=== PATIENT | female | born 1935 | race Caucasian/White ===

== ENCOUNTER 2016-08-15 12:16 | Inpatient (IN) | payer OTHER ==
[~2016-08-15] VITALS: Ht 142.2 cm; Wt 62.9 kg
--- NOTE | ~2016-08-15 | H ---
[facility] [place] [address] HISTORY AND PHYSICAL Name: MARYCRUZ PITTS Room #: 459-P ADM IN M.R.#: [id number] Admission: 08/15/16 Attend Phys: Burton Sanford MD Discharge: Date of : 33 Report #: [id number] THIS REPORT FOR: //name// CC: Burton Mancia Lama DATE OF SERVICE: 08/15/2016 TYPE OF DICTATION: Admission H and P after [id number] encounter. CHIEF COMPLAINT: Falls and weakness. HISTORY OF PRESENT ILLNESS: An 80-year-old female presented to the ER with a fall secondary to weakness. The patient now complains of back pain secondary to having bruises on her back and her left lower extremity. The patient also has a low blood pressure this morning. The patient's family reported a fall a week ago and she has a laceration on her right arm secondary to that. The patient recently started to take Zyprexa, and after that, she was complaining of weakness and repeated falls. The patient currently denies any fever, chills, nausea, vomiting, diarrhea, abdominal pain, short of breath, chest pain, headaches or any other associated symptoms. REVIEW OF SYSTEMS: Except that mentioned in the HPI, all other systems are negative. PAST MEDICAL HISTORY: Includes congestive heart failure and coronary artery disease status post peripheral vascular disease, status post stents. PAST SURGICAL HISTORY: Hysterectomy, gallbladder removal and pelvis fracture. MEDICATIONS: See admission reconciliation sheet. ALLERGIES: She is allergic to CODEINE, DIAZEPAM, FLUOXETINE, PENICILLIN, PENTAZOCINE, TRAMADOL and AMITRIPTYLINE. SOCIAL HISTORY: She is living with her . Does not smoke, drink or have any illicit drugs. PHYSICAL EXAMINATION: GENERAL: The patient is sleepy and lethargic, in no acute distress. VITAL SIGNS: Blood pressure 86/54, temperature 36.8, pulse 64, respirations 18 and O2 saturation 94% on 2 liters. HEENT: Eyes, intact extraocular muscles. No jaundice. Atraumatic and normocephalic. Moist mucous membranes. NECK: Supple. No lymph nodes, no JVD, no bruit. LUNGS: Good air entry both sides. Normal respiratory effort. No wheezes or [facility] [address] [place] [address] HISTORY AND PHYSICAL Name: MARYCRUZ PITTS Room #: 459[facility] .R.#: [id number] Admission: 08/15/16 Attend Phys: Burton Sanford MD Discharge: Date of : 33 Report #: [id number]. CARDIOVASCULAR: Regular rate and rhythm. No murmur, rub or gallop. Normal S1 and S2. ABDOMEN: Soft and nontender, positive bowel sounds. No organomegaly appreciated. EXTREMITIES: Moves all, but there are some bruises on the left lower extremity and right lower extremity. NEUROLOGIC: Cranial nerves 2-12 are intact. No focal neurological signs. SKIN: Faint ecchymosis near left scapula. Skin tear on the right forearm. Bruising bilateral lower extremities. LABORATORY DATA: EKG did show sinus rhythm. Sodium 128, potassium 5.8, creatinine 2.3, glucose 154 and calcium 9.2. White count 12.6, hemoglobin 10.4 and hematocrit 30.7. X-ray of the chest does show possible fracture of the anterior left 9th rib. ASSESSMENT AND PLAN: 1. Hypotension. The patient does not have any signs of infection for now, so we are going to give her IV fluids and follow her blood pressure. Actually, her blood pressure started to get better in the ER after a bolus of normal saline. 2. Fall. ____ We are going to consult PT, OT and put the patient on fall precautions. 3. Hyponatremia. We are going to replace that by normal saline. 4. Acute renal failure in the form of acute tubular necrosis. Her creatinine jumped up from 1.2 to 2.3, so the patient is going to be seen by nephrology for that. 5. Hyperkalemia 5.9. We are going to monitor her potassium level and give her some Kayexalate to overcome that. 6. Dementia. Has no behavior problem, and we are going to hold on the Zyprexa. 7. The patient is full code. 8. Gastrointestinal and deep vein thrombosis prophylaxis. <ELECTRONICALLY SIGNED> By: Burton Sanford MD 08/16/16 0929 1628 1807 Burton Sanford MD /nt
--- NOTE | ~2016-08-15 | EKG ---
[address] [place] [address] ELECTROCARDIOGRAM REPORT Name: MARYCRUZ PITTS Room #: 459-P ADM IN M.R.#: [id number] Admission: 08/15/16 Attend Phys: Burton Sanford MD Discharge: Date of : 33 Report #: [id number] THIS REPORT FOR: //name// [facility] ED Test Date: 2016-08-15 Test Time: 14:51:52 Pat Name: MARYCRUZ PITTS Department: Room: [facility] Gender: F Tool Liaison: Winsome MULLER : 1935 Requested By: Katalina Newberry Order Number: [id number] MD: Erik Rodriguez Measurements Intervals [place] Rate: 94 P: 0 CA: 151 QRS: 33 QRSD: 77 T: 35 QT: 391 QTc: 490 Interpretive Statements Sinus rhythm Multiple ventricular premature complexes Low voltage, extremity leads Nonspecific ST segment abnormalities Compared to ECG 07/22/2016 03:49:54 No significant change Electronically Signed On 08-15-2016 17:04:52 TEACHER OF THE SIGHT IMPAIRED by Erik Rodriguez [email or web address] <ELECTRONICALLY SIGNED> By: Erik Rodriguez MD 08/15/16 1704 145 50 Erik Rodriguez MD /GISELLE
--- NOTE | ~2016-08-15 | HC ---
[facility] [address] [address] CONSULTATION Name: MARYCRUZ PITTS Room #: 459-P [facility] IN M.R.#: [id number] Admission: 08/15/16 Attend Phys: uBrton Sanford MD Discharge: 08/22/16 Date of : 33 Report #: [id number] THIS REPORT FOR: //name// CC: Burton Lama NEPHROLOGY CONSULTATION ATTENDING PHYSICIAN: Burton Sanford MD REASON FOR CONSULTATION: Acute kidney injury. HISTORY OF PRESENT ILLNESS: This 80-year-old patient has recently had several hospitalizations for back pain and L4-5 compression fracture, kyphoplasty, and now presents with weakness, hypotension and creatinine that has been elevating from 0.6 in June of last year to 1.6 couple week ago, and now 2.3. Past. She has apparently not had nausea or vomiting, but she has been on her usual home medications, no diarrhea either. PAST MEDICAL HISTORY: She has coronary artery disease. She has had previous coronary stenting. History of hypertension. She had the collapsed disk with kyphoplasty, previous pelvic fracture, previous subdural hematoma, and peripheral vascular disease. She also has hysterectomy and cholecystectomy. HOME MEDICATIONS: As report from the hospital records included MiraLax as needed, folic acid 1 mg daily, potassium chloride 20 mEq daily, [place] p.r.n., B12, Zofran, furosemide 20 mg daily, D3 5,000 units daily, Pyridium, lorazepam 0.5 mg daily, Monopril 40 mg daily, Brilinta 90 mg b.i.d., Protonix 40 mg daily, iron melatonin, prednisone 20 mg daily. Neurontin 300 mg at bedtime, 100 mg midday. Bentyl 10 mg b.i.d., and Senokot at bedtime. FAMILY HISTORY: Noncontributory. SOCIAL HISTORY: Lives with her . No substantial cigarettes or alcohol. REVIEW OF SYSTEMS: GENERAL: She has been feeling progressively weak. EYES: She says her vision is okay. ENT: Hearing is okay. No problems with swallowing. ENDOCRINE: No diabetes or thyroid disease. RESPIRATORY: She denies shortness of breath, pleuritic pain or cough. CARDIAC: She has the cardiac history, but no recent chest pain, denies palpitations. GASTROINTESTINAL: Denies nausea, vomiting, diarrhea or bloody stools. GENITOURINARY: Denies dysuria, hematuria or stone disease. NEUROLOGIC: Generalized weakness, apparently she has dementia. [facility] [address] [place] [address] CONSULTATION Name: MARYCRUZ PITTS Room #: 459-P [facility] IN [facility].#: [id number] Admission: 08/15/16 Attend Phys: Burton Sanford MD Discharge: 08/22/16 Date of : 33 Report #: [id number] PHYSICAL EXAMINATION: GENERAL: This is a chronically ill-appearing, elderly lady, in no acute distress. SKIN: Multiple ecchymoses throughout, somewhat of cushingoid appearance. SKELETAL: As above. HEENT: Extraocular movements are full. Vision is intact. Hearing is intact. Mucous membranes are moist. Tongue and buccal mucosa are benign. NECK: Supple. CHEST: Clear to auscultation. HEART: Irregular. ABDOMEN: Soft. EXTREMITIES: Show no edema. NEUROLOGIC: Generalized weakness. LABORATORY DATA: Sodium 129, potassium 5.9, chloride 95, bicarbonate 21, creatinine 2.3, BUN 62. ASSESSMENT AND PLAN: 1. Acute kidney injury. Creatinine is up. She remained on the WESLEY inhibitor, the diuretics, the potassium, likely got somewhat volume depleted and she has been hypotensive, I will stop all those. She has been on prednisone, I wonder if she missed some doses, she has been on the 20 mg dose for a long-time, certainly is a somewhat dependent on that, that may also be contributing to her hypotension. I she will get better rather readily. At this point, I will not order a sonogram, but if she does get better very easily, then I will have to go ahead and order sonogram for completeness. 2. Coronary artery disease, status post stents. 3. Dementia. 4. Recent kyphoplasty with L4 compression fracture. <ELECTRONICALLY SIGNED> By: Rubens Almonte MD 08/28/16 1126 1837 0823 Rubens Almonte MD /nt
--- NOTE | ~2016-08-15 | EKG ---
[address] [address] ELECTROCARDIOGRAM REPORT Name: MARYCRUZ PITTS Room #: 459- ADM IN M.R.#: [id number] Admission: 08/15/16 Attend Phys: Burton Sanford MD Discharge: Date of : 33 Report #: [id number] THIS REPORT FOR: //name// [facility] Test Date: 2016-08-19 Test Time: 15:56:36 Pat Name: MARYCRUZ PITTS Department: Room: 459 Gender: F Garnett Machine Operator Helper: Angely DILL : 1935 Requested By: Charles Witt Order Number: [id number] MD: Phil Holman Measurements Intervals [place] Rate: 80 P: 39 [place]: 228 QRS: 2 QRSD: 70 T: 61 QT: 319 QTc: 368 Interpretive Statements Sinus tachycardia Ventricular trigeminy Prolonged [place] interval Low voltage, extremity and precordial leads Compared to ECG 08/15/2016 14:51:52 premature ventricular complexes are now present Electronically Signed On 08-20-2016 7:32:53 PRECISION DEVICES INSPECTOR/TESTER by Phil Holman [email or web address] <ELECTRONICALLY SIGNED> By: Phil Holman MD, FACC 08/20/16 0732 1556 1556 Phil Holman MD, [facility] /EPI
[2016-08-15 12:24] VITALS: BP 86/44
[2016-08-15 14:08] LABS: HEMATOCRIT 30.7 % (37.0-47.0); HEMOGLOBIN 10.4 gm/dL (12.0-15.0); MCH 33.5 pg (26.0-34.0); MCHC 33.8 % (28.0-37.0); MCV 99.1 fL (80.0-100.0); PLATELET COUNT 285 thou/uL (150-400); RDW 14.9 % (10.5-14.5); WBC 12.6 thou/uL (4.0-11.0)
[2016-08-15 14:14] LABS: MANUAL DIFF YES
[2016-08-15 14:15] LABS: CALCIUM 9.2 mg/dL (8.5-10.1); CREATININE 2.3 mg/dL (0.6-1.3); POTASSIUM 5.9 mmol/L (3.5-5.1)
[2016-08-15 14:47] LABS: ANISOCYTOSIS 1+; TOTAL CELL COUNT 100
[2016-08-15 16:15] LABS: URINE BILIRUBIN NEGATIVE (Negative); URINE BLOOD NEGATIVE (Negative); URINE COLOR YELLOW; URINE GLUCOSE-RANDOM* NEGATIVE (Negative); URINE KETONES NEGATIVE (Negative); URINE NITRITE NEGATIVE (Negative); URINE PROTEIN (DIPSTICK) NEGATIVE (Negative); URINE SPECIFIC GRAVITY <= 1.005 (1.003-1.035); URINE UROBILINOGEN 0.2 E.U./dl (0.2-1.0)
[2016-08-15 16:25] VITALS: BP 92/50
[2016-08-15 16:50] VITALS: BP 94/58
[2016-08-15 21:02] VITALS: BP 94/46
[2016-08-16 00:08] VITALS: BP 104/38
[2016-08-16 04:21] VITALS: BP 96/46
[2016-08-16 05:55] LABS: HEMATOCRIT 25.7 % (37.0-47.0); HEMOGLOBIN 8.6 gm/dL (12.0-15.0); MCH 34.1 pg (26.0-34.0); MCHC 33.4 % (28.0-37.0); MCV 101.9 fL (80.0-100.0); RBC 2.53 mil/uL (4.20-5.00); RDW 15.3 % (10.5-14.5); WBC 7.4 thou/uL (4.0-11.0)
[2016-08-16 06:14] LABS: ALBUMIN 2.7 g/dL (3.4-5.0); ALKALINE PHOSPHATASE 67 U/L (46-116); ANION GAP 10 mmol/L (7-16); BUN 53 mg/dL (7-18); CALCIUM 8.2 mg/dL (8.5-10.1); CHLORIDE 103 mmol/L (98-107); CO2 24 mmol/L (21-32); CREATININE 1.6 mg/dL (0.6-1.3); GLUCOSE 123 mg/dL (70-99); SGOT < 5 U/L (15-37); SGPT 23 U/L (30-65); TOTAL BILIRUBIN 0.1 mg/dL (<0.1-1.0); TOTAL PROTEIN 5.3 g/dL (6.4-8.2)
[2016-08-16 06:56] LABS: SODIUM 137 mmol/L (136-145)
[2016-08-16 08:00] VITALS: BP 86/36
[2016-08-16 12:00] VITALS: BP 97/29
[2016-08-16 16:00] VITALS: BP 99/47
[2016-08-16 20:43] VITALS: BP 99/40
[2016-08-17 04:14] VITALS: BP 103/52
[2016-08-17 06:02] LABS: ABSOLUTE NEUTROPHILS 5.3 thou/uL (1.4-8.2); BASOPHILS 0.2 % (0.0-2.0); EOSINOPHILS 0.4 % (0.0-3.0); HEMATOCRIT 22.5 % (37.0-47.0); HEMOGLOBIN 7.6 gm/dL (12.0-15.0); LYMPHOCYTES 16.7 % (24.0-44.0); MCH 33.9 pg (26.0-34.0); MCHC 33.7 % (28.0-37.0); MCV 100.5 fL (80.0-100.0); MONOCYTES 4.4 % (1.0-8.0); PLATELET COUNT 230 thou/uL (150-400); POLYS 78.3 % (36.0-66.0); RBC 2.24 mil/uL (4.20-5.00); RDW 15.2 % (10.5-14.5); WBC 6.8 thou/uL (4.0-11.0)
[2016-08-17 06:23] LABS: MANUAL DIFF NO
[2016-08-17 06:26] LABS: ALBUMIN 2.4 g/dL (3.4-5.0); CALCIUM 7.9 mg/dL (8.5-10.1); CREATININE 1.3 mg/dL (0.6-1.3); PHOSPHORUS 2.4 mg/dL (2.5-4.9); POTASSIUM 4.6 mmol/L (3.5-5.1)
[2016-08-17 08:03] VITALS: BP 81/38
[2016-08-17 11:39] LABS: HEMATOCRIT 25.1 % (37.0-47.0); HEMOGLOBIN 8.6 gm/dL (12.0-15.0)
[2016-08-17 12:27] VITALS: BP 126/45
[2016-08-17 17:20] LABS: HEMOGLOBIN 7.9 gm/dL (12.0-15.0)
[2016-08-17 20:00] VITALS: BP 98/70
[2016-08-17 23:27] LABS: HEMATOCRIT 26.2 % (37.0-47.0); HEMOGLOBIN 9.1 gm/dL (12.0-15.0)
[2016-08-18 04:00] VITALS: BP 119/62
[2016-08-18 06:44] LABS: HEMOGLOBIN 8.1 gm/dL (12.0-15.0); MCH 33.8 pg (26.0-34.0); MCV 99.4 fL (80.0-100.0); PLATELET COUNT 258 thou/uL (150-400); RBC 2.41 mil/uL (4.20-5.00); WBC 8.3 thou/uL (4.0-11.0)
[2016-08-18 06:46] LABS: MANUAL DIFF YES
[2016-08-18 07:11] LABS: ALBUMIN 2.8 g/dL (3.4-5.0); CALCIUM 8.6 mg/dL (8.5-10.1); PHOSPHORUS 2.5 mg/dL (2.5-4.9); POTASSIUM 4.4 mmol/L (3.5-5.1)
[2016-08-18 07:52] VITALS: BP 144/77
[2016-08-18 08:12] LABS: TOTAL CELL COUNT 100
[2016-08-18 08:14] LABS: ABSOLUTE NEUTROPHILS 5.7 thou/uL (1.4-8.2); ANISOCYTOSIS 1+; METAMYELOCYTES 2 %; POLYCHROMASIA OCCASIONAL
[2016-08-18 10:49] LABS: HEMATOCRIT 25.8 % (37.0-47.0); HEMOGLOBIN 8.6 gm/dL (12.0-15.0)
[2016-08-18 11:38] VITALS: BP 99/53
[2016-08-18 15:15] VITALS: BP 133/62
[2016-08-18 17:06] LABS: HEMATOCRIT 23.3 % (37.0-47.0); HEMOGLOBIN 7.9 gm/dL (12.0-15.0)
[2016-08-18 19:58] VITALS: BP 101/46
[2016-08-18 23:44] LABS: HEMATOCRIT 20.2 % (37.0-47.0)
[2016-08-18 23:48] LABS: HEMOGLOBIN 6.9 gm/dL (12.0-15.0)
[2016-08-19 01:42] LABS: ABSOLUTE NEUTROPHILS 6.6 thou/uL (1.4-8.2); BASOPHILS 0.3 % (0.0-2.0); EOSINOPHILS 0.2 % (0.0-3.0); HEMATOCRIT 24.1 % (37.0-47.0); LYMPHOCYTES 14.3 % (24.0-44.0); MCH 33.5 pg (26.0-34.0); MCHC 33.4 % (28.0-37.0); MCV 100.2 fL (80.0-100.0); MONOCYTES 4.1 % (1.0-8.0); PLATELET COUNT 262 thou/uL (150-400); POLYS 81.1 % (36.0-66.0); RDW 15.1 % (10.5-14.5); WBC 8.2 thou/uL (4.0-11.0)
[2016-08-19 01:49] LABS: MANUAL DIFF NO
[2016-08-19 01:56] LABS: ALBUMIN 2.7 g/dL (3.4-5.0); CALCIUM 8.6 mg/dL (8.5-10.1); PHOSPHORUS 2.6 mg/dL (2.5-4.9); POTASSIUM 4.1 mmol/L (3.5-5.1)
[2016-08-19 03:47] VITALS: BP 100/52
[2016-08-19 07:21] LABS: HEMATOCRIT 23.9 % (37.0-47.0); HEMOGLOBIN 8.2 gm/dL (12.0-15.0)
[2016-08-19 08:17] VITALS: BP 116/72
[2016-08-19 11:36] VITALS: BP 110/66
[2016-08-19 13:50] LABS: HEMATOCRIT 24.1 % (37.0-47.0); HEMOGLOBIN 8.4 gm/dL (12.0-15.0)
[2016-08-19 16:40] VITALS: BP 112/55
[2016-08-19 19:09] LABS: HEMOGLOBIN 7.5 gm/dL (12.0-15.0)
[2016-08-19 19:57] VITALS: BP 128/59
[2016-08-20 03:47] LABS: HEMATOCRIT 21.1 % (37.0-47.0); HEMOGLOBIN 7.2 gm/dL (12.0-15.0); MCH 33.9 pg (26.0-34.0); MCHC 34.2 % (28.0-37.0); MCV 99.1 fL (80.0-100.0); PLATELET COUNT 242 thou/uL (150-400); RBC 2.13 mil/uL (4.20-5.00); RDW 14.9 % (10.5-14.5)
[2016-08-20 03:52] LABS: MANUAL DIFF YES
[2016-08-20 04:03] LABS: ALBUMIN 2.6 g/dL (3.4-5.0); CALCIUM 8.8 mg/dL (8.5-10.1); CREATININE 1.1 mg/dL (0.6-1.3); POTASSIUM 4.1 mmol/L (3.5-5.1); TOTAL BILIRUBIN 0.2 mg/dL (<0.1-1.0); TOTAL PROTEIN 5.6 g/dL (6.4-8.2)
[2016-08-20 04:34] VITALS: BP 108/63
[2016-08-20 05:28] LABS: ABSOLUTE NEUTROPHILS 7.1 thou/uL (1.4-8.2); MYELOCYTES 1 %; TOTAL CELL COUNT 100
[2016-08-20 05:29] LABS: ANISOCYTOSIS 1+; POLYCHROMASIA 1+
[2016-08-20 07:45] VITALS: BP 116/61
[2016-08-20 09:08] LABS: HEMATOCRIT 23.4 % (37.0-47.0); HEMOGLOBIN 8.1 gm/dL (12.0-15.0)
[2016-08-20 12:15] VITALS: BP 104/58
[2016-08-20 16:15] VITALS: BP 86/38
[2016-08-20 19:34] VITALS: BP 96/51
[2016-08-21 06:05] VITALS: BP 117/52
[2016-08-21 08:00] VITALS: BP 117/56
[2016-08-21 12:00] VITALS: BP 95/52
[2016-08-21 16:00] VITALS: BP 104/40
[2016-08-21 20:00] VITALS: BP 92/52
[2016-08-22] VITALS: BP 106/52
[2016-08-22 04:00] VITALS: BP 98/47
[2016-08-22 08:00] VITALS: BP 104/51
[2016-08-22 12:00] VITALS: BP 104/55
[2016-08-22 16:00] VITALS: BP 95/59
== END 2016-08-22 18:31 | DRG 682 ==
LOC: ER 12:16 → EROBS 14:44 → 4W 14:44
PROVIDERS: Emergency Medicine; Hospitalist; Internal Medicine Nephrology; Nurse Practitioner Acute Care; Nurse Practitioner Family
DX: N17.0 Acute kidney failure with tubular necrosis (principal); E43 Unspecified severe protein-calorie malnutrition; E87.1 Hypo-osmolality and hyponatremia; E87.5 Hyperkalemia; S80.10XA Contusion of unspecified lower leg, initial encounter; I50.9 Heart failure, unspecified; I25.10 Atherosclerotic heart disease of native coronary artery without angina pectoris; I73.9 Peripheral vascular disease, unspecified; D64.9 Anemia, unspecified; K22.2 Esophageal obstruction; K57.30 Diverticulosis of large intestine without perforation or abscess without bleeding; F03.90 Unspecified dementia, unspecified severity, without behavioral disturbance, psychotic disturbance, mood disturbance, and anxiety; Z90.49 Acquired absence of other specified parts of digestive tract; Z87.81 Personal history of (healed) traumatic fracture; Z79.899 Other long term (current) drug therapy; Z88.8 Allergy status to other drugs, medicaments and biological substances; Z88.6 Allergy status to analgesic agent; I25.2 Old myocardial infarction; Z79.82 Long term (current) use of aspirin; Y93.89 Activity, other specified; Z90.710 Acquired absence of both cervix and uterus; Y92.89 Other specified places as the place of occurrence of the external cause; Y99.8 Other external cause status; Z95.5 Presence of coronary angioplasty implant and graft; W19.XXXA Unspecified fall, initial encounter; Z79.52 Long term (current) use of systemic steroids; Z68.31 Body mass index [BMI] 31.0-31.9, adult
CPT/HCPCS: 10045

== ENCOUNTER → 2016-08-15 | Outpatient (CLI) | payer OTHER ==
[~2016-08-15] MED LIST: ALENDRONATE SOD35 MG PO; ASPIR 8181 MG PO; ASPIRIN EC81 M1 PO; ATIVAN0.5 MG PO; B12INJ IM; BACTRIM DS TAB1 EACH PO; BENTYL 10 MG CA10 M1 PO; BENTYL 20 MG TA20 M1 PO; BENTYL10 MG PO; BISACODYL SUPP10 MG RECTAL; BRILINTA90 MG PO; CALCIUM 600 +1 EAC1 PO; CARAFATE 1 GM TA1 G1 PO; CEFDINIR300 MG PO; CELEXA 10 MG TA10 M1 PO; CELEXA20 MG PO; CIPRO500 MG PO; CIPROFLOXACIN500 M3 PO; COLACE 100 MG100 MG PO; COLACE100 MG PO; COREG3.125 MG PO; DRISDOL50000 UNIT PO; ELMIRON 100 MG100 M1 PO; ERYTHROMYCIN250 MG PO; EX-LAX15 M1 PO; FLAGYL500 MG PO; FLEET ENEMA118 ML RC; FLEXERIL PO; FLOMAX0.4 MG PO; FLUOXETINE HCL20 M1 PO; FOLBIC RF TABL1 EACH PO; FOLIC ACID1 MG PO; FOSINOPRIL SODI40 M1 PO; FOSINOPRIL SODI40 MG; GABAPENTIN 100100 MG PO; HYDROCHLOROTHIA25 M1; HYDROCHLOROTHIA25 M1 PO; HYDROCHLOROTHIA25 M2 PO; HYDROCODONE-AP1 EAC6 PO; HYDROCODONE-APA1 TA1 PO; IMDUR 30 MG TAB30 M1 PO; IRON325 PO; LASIX 20 MG TAB20 MG PO; LASIX 40 MG TAB40 M2 PO; LEVAQUIN 500 M500 M2 PO; LIDODERM 5%1 PATC1 TRANSDERM; LIPITOR 20 MG T20 M1 PO; LIPITOR20 MG PO; LISINOPRIL10 MG PO; LISINOPRIL20 MG PO; LOPRESSOR 50 MG50 M1 PO; LOPRESSOR25 PO; LORAZEPAM 0.50.5 M1 PO; LOVASTAT40 PO; MELATONIN3 MG PO; MILK OF MA2400 MG/10 PO; MIRALAX17 GM PO; MIRALAX255 GM PO; MIRTAZAPINE15 M2 PO; MOBIC15 MG PO; MONOPRIL20 MG PO; NEURONTIN 300300 M1 PO; NORCO 5-325 TA1 EACH PO; NYSTATIN 100,0015 GM TP; OMEPRAZOLE20 M2 PO; ONDANSETRON HCL4 M2 PO; OXYBUTYNIN 5 MG5 M2 PO; OXYCONTIN10 M1 PO; PANTOPRAZOLE SO40 M1 PO; PAXIL10 MG PO; PHENAZOPYRIDIN200 M2 PO; PHENAZOPYRIDINE PO; POTASSIUM20 PO; PRAVACHOL20 MG PO; PREDNISONE 20 M20 M1; PREDNISONE 20 M20 MG PO; PREMARIN0.625 MG PO; PROTONIX40 M1 PO; PROZAC 20 MG20 M1; RESTORIL15 MG PO; SENNA PO; SENNA S TABLET1 EACH PO; TORADOL 10 MG T10 MG PO; TRAMADOL 50 MG50 MG PO; TYLENOL325 MG PO; VITAMIN B-121000 MCG PO; VITAMIN D1000 UNI1 PO; VITAMIN D35000 UNI1 PO; ZOFRAN ODT4 MG DISSOLVE; ZOFRAN4 MG PO; ZYPREXA 2.2.5 MG/1 T PO; [UNRECOGNIZED DRUG - OTHER]; duragesic TD
--- NOTE | ~2016-08-15 | HPC ---
[facility] [address] [address] PAIN MANAGEMENT CONSULTATION Name: MARYCRUZ PITTS Room #: REG ANTONY Colon#: [id number] Admission: 08/15/16 Attend Phys: Arsh Joseph DO Discharge: Date of : 33 Report #: [id number] THIS REPORT FOR: //name// CC: Gavino Joseph DATE OF SERVICE: 08/15/2016 The patient is an 80-year-old female initially seen in consultation 07/14/2016, diagnosed with rectovaginal pain, component of lumbar radiculopathy secondary to spinal stenosis requiring complex medication management. She was initially given a ganlion impar block with about 40% relief. I saw her in followup 07/18/2016, we progressed to caudal epidural injection under fluoroscopy. The patient returns to pain clinic today noting that the rectovaginal pain has essentially gone. She does, however, have increasing pain in the mid back area. Last week, she had fallen over a commode, had pain left back and shoulder. Actually today, she fell again though this was a slow controlled fall to the ground as she had tripped, but had 2 people assisting her. Prior history of L4 vertebroplasty. Today, she is noting significant increasing pain in the mid back area. She is tender over the T3-T4 area, has significant thoracic kyphosis. Rates her pain a "10" on a 0-10 visual analog scale. PHYSICAL EXAMINATION: Otherwise shows 80-year-old female, BMI is approximately 27 kilograms per meter squared. She is hypotensive today, blood pressure 75/62, pulse 60, respirations 14. She states pain is quite problematic. With point tenderness, I am concerned that she may have another vertebral compression fracture. RECOMMENDATIONS: After discussion with the patient and her son and biostatistician, we noted she has been taking hydrocodone 5/325 every 4 hours with dwindling efficacy. She has been on this for many years. She does take gabapentin 100 mg 1 in the morning and 3 at night. We have elected to start the patient on a long acting opiate, Duragesic 12 mcg q. 72 hours and substitute tramadol for breakthrough pain. I have taken the liberty of getting the patient 1 prescription for this medication. I will have her follow up with Dr. Gavino Lama who typically is her managing physician. Given her hypotension and acute axial back pain concern for another vertebral compression fracture, the patient was transferred from our clinic to the ER. <ELECTRONICALLY SIGNED> By: Arsh Joseph DO 08/18/16 0917 1514 1909 Arsh Joseph DO /nt
[2016-08-15 11:37] VITALS: BP 75/62
== END ==
LOC: PAIN 07:06
DX: M54.16 Radiculopathy, lumbar region (principal); M48.06 Spinal stenosis, lumbar region; I10 Essential (primary) hypertension

== ENCOUNTER → 2016-10-30 | Outpatient (CLI) | payer OTHER ==
[~2016-10-30] VITALS: Ht 152.4 cm; Wt 72.6 kg
[~2016-10-30] MED LIST changes: +FENTANYL PA12 MCG/H1 TP
--- NOTE | ~2016-10-30 | HPC ---
[facility] [place] [address] PAIN MANAGEMENT CONSULTATION Name: MARYCRUZ PITTS Room #: REG Marie Godoy.#: [id number] Admission: 10/30/16 Attend Phys: Arsh Joseph DO Discharge: Date of : 33 Report #: [id number] THIS REPORT FOR: //name// CC: Gavino Joseph The patient is an 81-year-old female, prior seen in the pain clinic back on August 15 for ongoing lumbar radiculopathy secondary to spinal stenosis, rectal pain. She was given a ganglion impar block 07/14/2016 with 40% improvement and a caudal injection 07/18/2016 with nearly 100% improvement of the perirectal pain. She was recently started on Duragesic and hydrocodone in August. She was in the hospital August 15 through the for a fall. She was diagnosed with acute renal failure and dementia. EGFR was up to 48 on discharge. Returns to the pain clinic today, we had a prolonged visit from 11:40-12:10, greater than 50% of time spent counseling the patient. While she notes the back and perirectal pain seems to have been improved she now has pain in the right shoulder, which is problematic. She apparently had shoulder injection greater than a year ago in another clinic. She notes the pain is exacerbated with any and all movement of the right arm and shoulder. Abduction is significantly limited. She also has some abdominal pain, which has been going on for 2 years. She rates both the right shoulder pain and some of abdominal pain up to a 10 on a 0-10 visual analog scale. Again, she has a little dementia and history is somewhat piecemeal, though it is greatly facilitated by her who is seen today and is supportive. PHYSICAL EXAMINATION: GENERAL: She is an 81-year-old female, BMI is 30 kilograms per meter squared. VITAL SIGNS: Blood pressure 128/71, pulse 104, respirations 20. NEUROLOGIC: Cranial nerves 2-12 are generally intact. MUSCULOSKELETAL: Right shoulder range of motion is significantly limited to both active and passive pain with palpation over the acromioclavicular joint. HEART: Regular rhythmical. LUNGS: Clear. ABDOMEN: Shows an endomorphic build. She has some diffuse tenderness in the abdomen, but I cannot reproduce with palpation. There is no masses, no rebound or guarding. LOWER EXTREMITY: Strength is generally symmetric, though she is in a wheelchair and is significantly disabled. ASSESSMENT: Degenerative joint disease right shoulder, history of perirectal pain, lumbar radiculopathy secondary to spinal stenosis. RECOMMENDATIONS: After discussion with the patient today, we would like to move forward with the right shoulder injection under fluoroscopy. We will seek authorization for same. The patient has been off of her blood thinner now for [address] [address] PAIN MANAGEMENT CONSULTATION Name: MARYCRUZ PITTS Room #: REG ANTONY Colon#: [id number] Admission: 10/30/16 Attend Phys: Arsh Joseph DO Discharge: Date of : 33 Report #: [id number] several months. She is using a Duragesic patch at 12 mcg, thinks this affords some efficacy, gabapentin continues 100 mg once or twice a day. Hydrocodone 5/325 up to 4 a day. RECOMMENDATION: We will proceed with right shoulder injection under fluoroscopy at earliest possible date. Discharged in good and stable condition after prolonged visit, greater than 50% of time was spent reviewing medical history, discussing therapeutic options and counseling the patient. <ELECTRONICALLY SIGNED> By: Arsh Joseph DO 10/31/16 1138 1243 2039 Arsh Joseph DO /nt
[2016-10-30 11:37] VITALS: BP 128/71
== END | disposition home or self-care (01) ==
LOC: PAIN 07:02
DX: M54.16 Radiculopathy, lumbar region (principal); M48.06 Spinal stenosis, lumbar region; K62.89 Other specified diseases of anus and rectum; M19.011 Primary osteoarthritis, right shoulder

== ENCOUNTER → 2016-11-10 | Outpatient (CLI) | payer OTHER ==
[~2016-11-10] VITALS: Ht 152.4 cm; Wt 72.6 kg
--- NOTE | ~2016-11-10 | HPC ---
[facility] [place] [address] PAIN MANAGEMENT CONSULTATION Name: MARYCRUZ PITTS Room #: REG Marie Godoy.#: [id number] Admission: 11/10/16 Attend Phys: Arsh Joseph DO Discharge: Date of : 33 Report #: [id number] THIS REPORT FOR: //name// CC: Gavino Joseph HISTORY OF PRESENT ILLNESS: The patient is an 81-year-old female, prior treated for symptomatic lumbar radiculopathy secondary to spinal stenosis with perirectal pain. She was given ganglion impar prior block in July and caudal injection with overall improvement of baseline pain. At her last visit on 10/30/2016, she was having increasing pain in the right shoulder. We sought authorization to proceed with right shoulder injection under fluoroscopy. The patient presents to the pain clinic today for this procedure. She notes ongoing pain in the right shoulder with cervical range of motion. PROCEDURE NOTE: Right shoulder injection under fluoroscopy. PROCEDURE: After written informed consent was obtained, the patient was taken to the fluoroscopy suite and placed in the supine position. Skin overlying the right shoulder was prepped with ChloraPrep. Skin wheal with Xylocaine was raised. A 22-gauge stylet needle was placed to contact the proximal aspect of the humerus in the glenohumeral joint. Negative aspiration was accomplished; 1 mL of Omnipaque was injected, which showed spread within the joint followed with 40 mg triamcinolone plus 2 mL of 0.5% preservative-free bupivacaine. Under fluoroscopy, it appears that the joint is quite arthritic. The patient was told to ice the area today. Followup is as needed. Watch for signs of infection. Follow up for medication management. By: 1712 0227 Arsh Joseph DO /nt
[2016-11-10 10:01] VITALS: BP 145/74
== END ==
LOC: PAIN 06:50
DX: M54.16 Radiculopathy, lumbar region (principal); M48.06 Spinal stenosis, lumbar region

== ENCOUNTER → 2016-12-03 | Outpatient (CLI) | payer OTHER | LOC: NUC 08:15 | DX: N95.9 Unspecified menopausal and perimenopausal disorder (principal); M85.80 Other specified disorders of bone density and structure, unspecified site ==

== ENCOUNTER 2017-02-04 23:15 | Inpatient (IN) | payer OTHER ==
[~2017-02-04] VITALS: Ht 165.1 cm; Wt 72.6 kg
[2017-02-04 23:17] VITALS: BP 112/43
[2017-02-04 23:50] LABS: HEMATOCRIT 25.2 % (37.0-47.0); HEMOGLOBIN 8.7 gm/dL (12.0-15.0); MCH 33.5 pg (26.0-34.0); MCHC 34.5 g/dL (28.0-37.0); MCV 96.9 fL (80.0-100.0); PLATELET COUNT 348 thou/uL (150-400); RDW 17.7 % (10.5-14.5); WBC 17.6 thou/uL (4.0-11.0)
[2017-02-04 23:53] LABS: MANUAL DIFF YES
[2017-02-04] MEDS ORDERED: LASIX 40 MG TAB40 M2 PO (23:53)
[2017-02-04] MEDS ORDERED: ALDACTONE25 MG PO (23:54)
[2017-02-04] MEDS ORDERED: BENTYL 10 MG CA10 M1 PO (23:58)
[2017-02-04 23:59] LABS: ANION GAP 12 mmol/L (7-16); BUN 70 mg/dL (7-18); CALCIUM 8.8 mg/dL (8.5-10.1); CHLORIDE 94 mmol/L (98-107); CO2 23 mmol/L (21-32); CREATININE 1.7 mg/dL (0.6-1.0); GLUCOSE 140 mg/dL (74-106); POTASSIUM 4.8 mmol/L (3.5-5.1); SODIUM 129 mmol/L (136-145)
[2017-02-05 00:04] LABS: ALKALINE PHOSPHATASE 37 U/L (46-116); DIRECT BILIRUBIN < 0.1 mg/dL (<0.1-0.3); SGOT 25 U/L (15-37); SGPT 27 U/L (30-65); TOTAL BILIRUBIN 0.2 mg/dL (<0.1-1.0); TOTAL PROTEIN 6.4 g/dL (6.4-8.2)
[2017-02-05 00:28] LABS: ABSOLUTE NEUTROPHILS 15.5 thou/uL (1.4-8.2); NUCLEATED RBCS 1 /100WBC; PLATELET ESTIMATE NORMAL; TOTAL CELL COUNT 100
[2017-02-05 01:49] LABS: URINE BILIRUBIN NEGATIVE (Negative); URINE BLOOD NEGATIVE (Negative); URINE COLOR YELLOW; URINE GLUCOSE-RANDOM* NEGATIVE (Negative); URINE KETONES NEGATIVE (Negative); URINE NITRITE NEGATIVE (Negative); URINE PROTEIN (DIPSTICK) NEGATIVE (Negative); URINE SPECIFIC GRAVITY 1.015 (1.003-1.035); URINE UROBILINOGEN 0.2 E.U./dl (0.2-1.0)
[2017-02-05 01:58] LABS: BACTERIA 1-9 Few /HPF (None Seen); CASTS None Seen /LPF (None Seen); CRYSTALS None Seen /LPF (None Seen); SQUAMOUS 0-3 Few /LPF (0-3); URINE RBC None Seen /HPF (0-2); URINE WBC 6-15 Few /HPF (0-5)
[2017-02-05 02:34] VITALS: BP 103/28
[2017-02-05 03:50] VITALS: BP 114/56
[2017-02-05 05:48] VITALS: BP 115/55
[2017-02-05 08:00] VITALS: BP 96/49
[2017-02-05 15:30] VITALS: BP 102/55
[2017-02-05 20:00] VITALS: BP 90/54
[2017-02-06] VITALS (7 sets, daily range): BP systolic 93–158; BP diastolic 40–73
[2017-02-06 06:41] LABS: MCH 33.2 pg (26.0-34.0); MCV 98.4 fL (80.0-100.0); RDW 17.6 % (10.5-14.5)
[2017-02-06 06:43] LABS: MCHC 33.7 g/dL (28.0-37.0); RBC 2.02 mil/uL (4.20-5.00); WBC 10.4 thou/uL (4.0-11.0)
[2017-02-06 06:52] LABS: CALCIUM 8.6 mg/dL (8.5-10.1)
[2017-02-06 07:17] LABS: HEMATOCRIT 19.9 % (37.0-47.0); HEMOGLOBIN 6.7 gm/dL (12.0-15.0)
[2017-02-07 04:00] VITALS: BP 128/53
[2017-02-07 06:03] LABS: HEMATOCRIT 29.3 % (37.0-47.0); MCH 33.6 pg (26.0-34.0); MCHC 34.7 g/dL (28.0-37.0); RBC 3.02 mil/uL (4.20-5.00); RDW 15.5 % (10.5-14.5); WBC 7.5 thou/uL (4.0-11.0)
[2017-02-07 06:14] LABS: HEMOGLOBIN 10.1 gm/dL (12.0-15.0)
[2017-02-07 07:05] VITALS: BP 130/70
[2017-02-07 15:30] VITALS: BP 140/75
[2017-02-07 19:21] VITALS: BP 125/67
[2017-02-08 04:58] VITALS: BP 156/94
[2017-02-08 07:32] LABS: ALBUMIN 2.6 g/dL (3.4-5.0); CALCIUM 8.8 mg/dL (8.5-10.1); DIRECT BILIRUBIN 0.1 mg/dL (<0.1-0.3); POTASSIUM 5.2 mmol/L (3.5-5.1); TOTAL BILIRUBIN 0.5 mg/dL (<0.1-1.0); TOTAL PROTEIN 5.8 g/dL (6.4-8.2)
[2017-02-08 08:00] VITALS: BP 154/79
[2017-02-08 09:39] LABS: HEMATOCRIT 31.7 % (37.0-47.0); HEMOGLOBIN 11.2 gm/dL (12.0-15.0); MCH 33.8 pg (26.0-34.0); MCHC 35.2 g/dL (28.0-37.0); MCV 96.2 fL (80.0-100.0); RBC 3.3 mil/uL (4.20-5.00); RDW 15.7 % (10.5-14.5); WBC 8.4 thou/uL (4.0-11.0)
[2017-02-08 16:00] VITALS: BP 131/82
[2017-02-08 20:15] VITALS: BP 130/66
[2017-02-09 04:00] VITALS: BP 122/61
[2017-02-09 06:30] LABS: HEMATOCRIT 29.9 % (37.0-47.0); HEMOGLOBIN 10.2 gm/dL (12.0-15.0); MCH 33.9 pg (26.0-34.0); MCHC 34.2 g/dL (28.0-37.0); MCV 99.2 fL (80.0-100.0); RBC 3.02 mil/uL (4.20-5.00); RDW 15.9 % (10.5-14.5); WBC 7.6 thou/uL (4.0-11.0)
[2017-02-09 06:38] LABS: CREATININE 1.1 mg/dL (0.6-1.0); POTASSIUM 4.9 mmol/L (3.5-5.1)
[2017-02-09 08:11] VITALS: BP 181/89
[2017-02-09 09:16] VITALS: BP 139/70
[2017-02-09 15:25] VITALS: BP 150/87
[2017-02-09 19:20] VITALS: BP 117/57
[2017-02-10 04:10] VITALS: BP 135/58
[2017-02-10 07:15] VITALS: BP 121/60
[2017-02-10 07:16] LABS: HEMATOCRIT 31.1 % (37.0-47.0); HEMOGLOBIN 10.6 gm/dL (12.0-15.0); MCH 33.3 pg (26.0-34.0); MCV 98.1 fL (80.0-100.0); RBC 3.17 mil/uL (4.20-5.00); RDW 16.3 % (10.5-14.5); WBC 7.8 thou/uL (4.0-11.0)
[2017-02-10] MEDS ORDERED: CEFUROXIME250 MG PO (09:18)
[2017-02-10] MEDS ORDERED: PREMARIN VAGI42.5 G1 VAG (09:21)
[2017-02-10] MEDS ORDERED: FLORANEX PACKET1 GM PO (09:26)
[2017-02-10] MEDS ORDERED: PREDNISONE 20 M20 M1 PO (09:27)
== END 2017-02-10 15:10 | DRG 871 ==
LOC: ER 23:15 → 3N 02-05 00:50 → EROBS 02-05 00:50 → 3N 02-05 02:40
PROVIDERS: Internal Medicine; Nurse Practitioner
PROC: 30233N1 Transfusion of Nonautologous Red Blood Cells into Peripheral Vein, Percutaneous Approach (ICD-10-PCS; principal; 2017-02-06)
DX: A41.9 Sepsis, unspecified organism (principal); N17.0 Acute kidney failure with tubular necrosis; N39.0 Urinary tract infection, site not specified; E87.1 Hypo-osmolality and hyponatremia; D59.1 Other autoimmune hemolytic anemias; E46 Unspecified protein-calorie malnutrition; D72.829 Elevated white blood cell count, unspecified; E86.9 Volume depletion, unspecified; K59.00 Constipation, unspecified; K42.9 Umbilical hernia without obstruction or gangrene; E87.5 Hyperkalemia; N18.3 Chronic kidney disease, stage 3 (moderate); I50.9 Heart failure, unspecified; N95.2 Postmenopausal atrophic vaginitis; F03.90 Unspecified dementia, unspecified severity, without behavioral disturbance, psychotic disturbance, mood disturbance, and anxiety; Z96.659 Presence of unspecified artificial knee joint; F41.9 Anxiety disorder, unspecified; K21.9 Gastro-esophageal reflux disease without esophagitis; E78.5 Hyperlipidemia, unspecified; E66.9 Obesity, unspecified; Z68.26 Body mass index [BMI] 26.0-26.9, adult; I25.2 Old myocardial infarction; Z95.5 Presence of coronary angioplasty implant and graft; Z87.81 Personal history of (healed) traumatic fracture; Z79.899 Other long term (current) drug therapy; Z90.49 Acquired absence of other specified parts of digestive tract; Z90.710 Acquired absence of both cervix and uterus; Z88.0 Allergy status to penicillin; Z88.1 Allergy status to other antibiotic agents; Z88.8 Allergy status to other drugs, medicaments and biological substances
CPT/HCPCS: 10094

== ENCOUNTER 2019-10-21 09:06 | Inpatient (IN) | payer OTHER ==
[2019-10-21] VITALS (7 sets, daily range): BP systolic 161–192; BP diastolic 63–96
[~2019-10-21] VITALS: Ht 149.9 cm; Wt 94.3 kg
--- NOTE | ~2019-10-21 | EMS ---
[place] [id number] EMS Patient Care Report Name: MARYCRUZ PITTS Room #: REG [facility] Colon#: [id number] Admission: 10/21/19 Attend Phys: Discharge: Date of : 31 Report #: [id number] THIS REPORT FOR: //name// Report Transmitted: 10/21/2019 09:52 EMS Care Summary [place], [place]/[facility] Incident [id number] @ 10/21/2019 08:22 Incident Location [address] [place] [address] 21 Patient MARYCRUZ PITTS Female, 84 Years 1935 Patient Address [address] [place] [address] [address] [place] [address] Patient History Congestive Heart Failure (CHF),Hyperlipidemia,Gastro-Esophageal Reflux Disease (GERD),Anxiety,Anemia,Hypokalemia, Patient Allergies Codeine,Penicillin allergy,Tramadol,Diazepam, Patient Medications Fentanyl, Lasix, Zofran, Carafate, Gabapentin, Morphine, Oxycodone, Colace, Acetaminophen, Ativan, Miralax, Aldactone, Tizanidine, Aspirin, Melatonin, Chief Complaint HIP/PEVLIS FX Disposition Transported No Lights/[place] Dispatch Reason Falls Transported To [facility] Narrative PT FOUND LYING IN BED. STAFF STATES PT FELL YESTERDAY DURING PT. [place] [employer] [address] EMS Patient Care Report Name: MARYCRUZ PITTS Room #: REG [facility].#: [id number] Admission: 10/21/19 Attend Phys: Discharge: Date of : 31 Report #: [id number] CONFIRMED XRAY HIP FX. PT WANTED TO GO TO ED AND DR SAID TO SEND EHR OUT. PT DENIES OTHER COMPLAINTS. STAFF STATES NO OTHER FX NOTED ON XRAY. TRASNPORTED WITHOUT INCIDENT. Initial Vitals @08:45P: 98,R: 16,BP: 168/70,Pain: 4/10,GCS: 15,SpO2: 85,Revised Trauma: 12, Assessments @08:30MENTAL:No Abnormalities,SKIN:No Abnormalities,HEENT:Head/Face: No Abnormalities,Eyes: No Abnormalities,Neck/Airway: No Abnormalities,LUNG SOUNDS:ABDOMEN:PELVIS//GI:Pelvis Other,EXTREMITIES:PULSE:NEURO:No Abnormalities, Impression Injury of Pelvis Procedures @08:30ALS AssessmentResponse: UnchangedSucceeded Timeline 08:20,Call Received 08:20,Dispatch Notified 08:22,Dispatched 08:23,En Route 08:28,On Scene 08:30,At Patient 08:30,ALS Assessment,Response: UnchangedSucceeded, 08:45,BP: 168/70 M,PULSE: 98,RR: 16 R,SPO2: 85 Ox,ETCO2: ,BG: ,PAIN: 4,GCS: 15, 08:47,Depart Scene 08:58,At Destination 09:17,Call Closed Disclaimer v1.1 Copyright 2020 [employer] This EMS Care Summary contains data elements from the applicable legal record (which may be displayed differently). It is designed to provide pertinent information for the following purposes: continuity of care, clinical quality, and state data reporting. The complete legal record is available to ED staff and administrators of the receiving hospital in ES's Patient Tracker. All data is provided "as is."
--- NOTE | ~2019-10-21 | HC ---
[facility] [place] [address] CONSULTATION Name: MARYCRUZ PITTS Room #: 439-P ADM IN M.R.#: [id number] Admission: 10/21/19 Attend Phys: Javad Martinez MD Discharge: Date of : 31 Report #: [id number] THIS REPORT FOR: cc: Javad Martinez MD,Javad Browne,Darrell Dc MD ~ CC: Javad Martinez DATE OF SERVICE: 10/21/2019 CHIEF COMPLAINT: Multiple chronic and acute pelvic fractures. HISTORY OF PRESENT ILLNESS: This 83-year-old female has a hospice diagnosis of congestive heart failure as well as other general medical problems. She has apparently had multiple fractures in the past and has screw fixation across the sacral fracture as well as old fracture of the pelvis and an old non-united fracture of the left proximal femur. She apparently is nonambulatory, but still managed to fall in some fashion injuring the right hip. New x-rays reveal an angulated mildly displaced fracture of the right proximal femur in the intertrochanteric region. There may be new fracture of the right superior pubic ramus and the old fractures of the sacrum and completely displaced nonunion of the left proximal femur. At the time of my evaluation, she is responsive, but rather lethargic and seems somewhat confused. She does not have a good understanding of her previous history nor the current situation. She notes she is uncomfortable, but cannot differentiate easily with regard to the chronic discomfort on the left side or the new discomfort on the right side. She has some general discomfort at the pelvis. I note that she is on chronic narcotic medications, I believe, with a fentanyl patch. She is quite heavy and obviously nonambulatory. She has limited movement and strength in the upper extremities and moderate discomfort with any movement in both lower extremities. Both hips were placed in somewhat externally rotated position with mild flexion for comfort. The skin appears to be intact. I do not see any significant decubiti at this point. 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 There are multiple fractures throughout the pelvis, which appeared to be chronic. There is a right femur intertrochanteric fracture with some shortening and mild angular deformity. IMPRESSION: I have discussed this with the patient as best I can given her age and confusion. I have also discussed this with Dr. Santiago who is here to see her from a general medical point of view. I have explained that we could certainly try to fix the right proximal femur fracture; however, it appears that she has already been treated with a nonsurgical management for the left side [address] [address] CONSULTATION Name: MARYCRUZ PITTS Room #: 439-P ADM IN M.R.#: [id number] Admission: 10/21/19 Attend Phys: Javad Martinez MD Discharge: Date of : 31 Report #: [id number] and she is nonambulatory and with a hospice diagnosis and on chronic narcotic medications. She is also quite heavy and frail and deconditioned. I think she would be a particularly full risk for anesthetic and surgery. Given this, I think palliative care may be the best option. She seems reasonably comfortable at this time and was actually sleeping at the time of my arrival. She is uncomfortable with movement and I am sure this will be difficult with regard to positioning and bathing and perineal care. Nevertheless, I would favor nonsurgical management for this patient. I believe Dr. Santiago and Dr. Martinez agree with this approach and will make appropriate plans. I am happy to check with the patient or family if they have any questions or concerns. By: 1650 1722 Darrell Browne MD /nt
[~2019-10-21 09:06] MED LIST changes: +ALDACTONE25 MG PO; +CEFUROXIME250 MG PO; +FLORANEX PACKET1 GM PO; +PREDNISONE 20 M20 M1 PO; +PREMARIN VAGI42.5 G1 VAG
[2019-10-21 09:45] LABS: ABSOLUTE NEUTROPHILS 9.7 thou/uL (1.4-8.2); BASOPHILS 0.5 % (0.0-2.0); EOSINOPHILS 0.2 % (0.0-3.0); HEMATOCRIT 33.5 % (37.0-47.0); HEMOGLOBIN 11.1 gm/dL (12.0-15.0); LYMPHOCYTES 7.9 % (24.0-44.0); MCH 28.5 pg (26.0-34.0); MCHC 33.1 g/dL (28.0-37.0); MCV 86.3 fL (80.0-100.0); MONOCYTES 6.8 % (1.0-8.0); PLATELET COUNT 258 thou/uL (150-400); POLYS 84.6 % (36.0-66.0); RBC 3.88 mil/uL (4.20-5.00); RDW 15.7 % (10.5-14.5); WBC 11.5 thou/uL (4.0-11.0)
[2019-10-21 09:54] LABS: CALCIUM 9.5 mg/dL (8.5-10.1); POTASSIUM 3.8 mmol/L (3.5-5.1)
[2019-10-21 10:01] LABS: ALBUMIN 3.3 g/dL (3.4-5.0); TOTAL BILIRUBIN 0.6 mg/dL (<0.1-1.0); TOTAL PROTEIN 7.9 g/dL (6.4-8.2)
[2019-10-21 10:19] LABS: APTT 27.6 Seconds (24.5-32.8); INR 1.1; PROTIME 10.8 Seconds (9.3-11.4)
[2019-10-21] MEDS ORDERED: TYLENOL325 MG PO (11:59)
[2019-10-21] MEDS ORDERED: BENTYL 10 MG CA10 MG PO (12:03)
[2019-10-21] MEDS ORDERED: ATIVAN0.5 M1 PO (12:03)
[2019-10-21] MEDS ORDERED: BISACODYL10 MG RECTAL (12:05)
--- NOTE | 2019-10-21 16:23 | EKG ---
[facility] [place] [address] ELECTROCARDIOGRAM REPORT Name: MARYCRUZ PITTS Room #: 439- ADM IN M.R.#: [id number] Admission: 10/21/19 Attend Phys: Javad Martinez MD Discharge: Date of : 33 Report #: [id number] THIS REPORT FOR: cc: Javad Martinez MD, Ramilo MD Park,Erik Borrego MD ~ THIS REPORT FOR: //name// [facility] ED Test Date: 2019-10-21 Test Time: 10:13:06 Pat Name: MARYCRUZ PITTS Department: Room: 439 Gender: F Cro: NEELAM : 1935 Requested By: Josué Delong Order Number: [id number] MD: Erik Rodriguez Measurements Intervals [place] Rate: 86 P: 0 PA: QRS: 42 QRSD: 94 T: 45 QT: 440 QTc: 527 Interpretive Statements Sinus rhythm Second deg AVB, Mobitz I (Wenckebach) Borderline low voltage, extremity leads Prolonged QT interval Compared to ECG 08/19/2016 15:56:36 Prolonged QT interval now present Sinus tachycardia no longer present Ventricular premature complex(es) no longer present First degree AV block no longer present Electronically Signed On 10-21-2019 16:22:10 CDT by Erik Rodriguez [email or web address] <ELECTRONICALLY SIGNED> By: Erik Rodriguez MD 10/21/19 1622 1013 1013 Erik Rodriguez MD /EPI
[2019-10-21 19:36] LABS: URINE BILIRUBIN NEGATIVE (Negative); URINE BLOOD TRACE (Negative); URINE CLARITY SL CLOUDY; URINE COLOR YELLOW; URINE GLUCOSE-RANDOM* NEGATIVE (Negative); URINE KETONES NEGATIVE (Negative); URINE LEUKOCYTES-REFLEX TRACE (Negative); URINE PROTEIN (DIPSTICK) 1+ (Negative)
[2019-10-21 19:38] LABS: URINE NITRITE-REFLEX POSITIVE (Negative)
[2019-10-21 19:55] LABS: BACTERIA-REFLEX >30 Many /HPF (None Seen); CASTS None Seen /LPF (None Seen); CRYSTALS None Seen /LPF (None Seen); URINE WBC-REFLEX >25 Many /HPF (0-5)
[2019-10-21 19:56] LABS: SQUAMOUS None Seen /LPF (0-3); URINE RBC 0-2 Rare /HPF (0-2)
--- NOTE | 2019-10-21 22:34 | H ---
[facility] [place] [address] HISTORY AND PHYSICAL Name: MARYCRUZ PITTS Room #: 439-P ADM IN M.R.#: [id number] Admission: 10/21/19 Attend Phys: Javad Martinez MD Discharge: Date of : 31 Report #: [id number] THIS REPORT FOR: cc: Javad Martinez MD,Javad Santigao,Oscar Son MD ~ CC: Javad Martinez DATE OF SERVICE: 10/21/2019 CHIEF COMPLAINT: Acute right proximal femoral intertrochanteric fracture. HISTORY OF PRESENT ILLNESS: Information is obtained completely from the Emergency Room physician's record. She fell out of bed yesterday at the senior care and was rolled. X-ray at the senior care showed an acute right intertrochanteric fracture. There is left femoral neck fracture as well. She is on hospice for congestive heart failure and was brought to the Emergency Room by hospice nurse. Evaluation in the Emergency Room, exam showed tenderness over both hips to palpation and with any movement. X ray results showed an acute right intertrochanteric fracture. Fractures of the pelvis and the left femur appeared old. X-rays here at [place] showed the right intertrochanteric fracture to be acute. There is a possibility that the right superior pubic ramus fracture might be acute. Other pelvic fractures are noted and are old, there are screws to the sacrum and iliac bones and some left pubic rami fractures appear chronic as well. 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 The patient is admitted for Orthopedic consultation to consider repair of the right intertrochanteric fracture for pain control. She currently is in hospice for CHF. She has broken her pelvis twice previously and is no longer ambulatory. She spends her time either in bed or is lifted into a Broda chair to leave her room. PAST MEDICAL HISTORY/PREVIOUS DIAGNOSES ON HER PENITENTIARY CHART: She is on hospice for congestive heart failure. There is a diagnosis of dysuria, COPD, cough, xerosis cutis, hypoxemia, autoimmune hemolytic anemia, hypokalemia, chronic kidney disease stage 3, gastroesophageal reflux disease without gastritis, muscle spasms of the back, edema, obesity, pain, low back pain, weakness, mixed hyperlipidemia, polyneuropathy, chronic pulmonary edema, heart failure, anxiety disorder, postmenopausal atrophic vaginitis, hyponatremia, constipation, and insomnia. ALLERGIES: PENICILLINS, TRAMADOL, DIAZEPAM, CODEINE, PROZAC, PENTAZOCINE, [address] [address] HISTORY AND PHYSICAL Name: MARYCRUZ PITTS Room #: 439-P [facility] IN .R.#: [id number] Admission: 10/21/19 Attend Phys: Javad Martinez MD Discharge: Date of : 31 Report #: [id number] FLUOXETINE, AMITRIPTYLINE, MACROBID CAUSES ANAPHYLACTIC SHOCK. MEDICATIONS: Acetaminophen 325 mg every 6 hours as needed for pain, Aldactone 12.5 mg daily for edema, 81 mg aspirin daily, lorazepam 0.5 mg at bedtime, Bentyl 10 mg twice daily, bisacodyl suppository every 24 hours as needed for constipation, Carafate 1 gram daily, Colace 2 capsules daily p.r.n. for constipation, fentanyl patch 50 mcg every 72 hours, simethicone 80 mg chewed twice daily, Lasix 40 mg in the morning daily, Maalox 30 mg p.r.n., upset stomach or indigestion, melatonin 3 mg at 6:00 p.m. daily, milk of magnesia 10 mL p.r.n., MiraLax 17 grams twice daily scheduled, gabapentin 100 mg at lunch, nystatin powder p.r.n. to the skin affected areas, oxygen 2 liters as needed to keep saturations over 90, omeprazole 20 mg 2 tabs daily for GERD, oxycodone 5 mg 2 tablets every 4 hours as needed, Roxanol 5 mg every hour for shortness of breath or pain, tizanidine 2 mg every 12 hours at 6 and 6 for muscle spasms, Zofran 4 mg orally every 6 hours as needed for nausea. SOCIAL HISTORY: She is a senior care resident because of dementia. On chart from the senior care, there appears an out of hospital DNR form signed on 01/22/2017. Her attending physician/primary care physician reports to follow that directive. OBJECTIVE: GENERAL: The patient is alert and answers to her name. HEENT: Unremarkable except the oral mucosa and tongue are dry. LUNGS: Clear. CARDIOVASCULAR: The heart tones are regular. The upper extremities are normal. ABDOMEN: Soft, nontender, without hepatosplenomegaly or masses. EXTREMITIES: The extremities are mildly edematous and also have quite a bit of adipose obesity tissue. The right hip is foreshortened and externally rotated. The left leg is resting extended. There is tenderness to palpation in the upper right leg and lower right pelvis. There is no significant tenderness to palpation of the left pelvic bones. IMPORTANT LABORATORY DATA: Shows a sodium of 128. Her creatinine is baseline at 1 and her BUN is also baseline at 24. Her albumin is higher than usual for her at 3.3. White count is elevated at 11.5. Hemoglobin is elevated at 11.1. There is some mild left shift with 84% segs. ASSESSMENT: 1. An acute right intertrochanteric femur fracture. 2. X-ray report suggest that a right superior pubic ramus fracture might be acute, and it is tender in that area on exam. 3. Old left pubic rami fractures. 4. 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 [facility] [address] [place] [address] HISTORY AND PHYSICAL Name: MARYCRUZ PITTS Room #: 439-P [facility] IN ..#: [id number] Admission: 10/21/19 Attend Phys: Javad Martinez MD Discharge: Date of : 33 Report #: [id number] 5. The patient is nonambulatory and wheelchair bound. 6. Old age, type dementia. 7. History of cardiomegaly and congestive heart failure as a hospice diagnosis. 8. Dehydration on exam and by laboratory data. 9. Hyponatremia of 128 -- appears chronic. 10. Slight infiltrate, possible pneumonia on chest x-ray, she did have a fever of 99.2 in the Emergency Room. 11. Other problems as mentioned in the history and physical above -- stable. DISCUSSION: Case was discussed with Dr. Javad Martinez, her attending at [facility], on the telephone along with Dr. Darrell Browne, Orthopedic Service who had just finished examining her as well. Since she is nonambulatory, and already is taking oxycodone and fentanyl for chronic pain, and already has a nonunion of the left hip fracture, given all of these facts, Dr. Martinez agrees with Dr. Browne's recommendation for nonoperative treatment of her hip fracture, at least initially. ADDITIONAL NOTE: The chart bears a copy of an out of the hospital DNR request form signed by her on 01/22/2017. Dr. Martinez signed the form is well, and wishes that she be continued as a "DNR" and this will be done. PLAN: The patient is admitted for an initial treatment of her acute right hip fracture with pain control and a nonoperative treatment. We will monitor her and see if her pain medications require adjustment. <ELECTRONICALLY SIGNED> By: Oscar Santiago MD 10/21/19 [id number] Oscar Santiago MD /nt
[2019-10-22 04:32] VITALS: BP 181/70
[2019-10-22 05:55] LABS: HEMATOCRIT 26.4 % (37.0-47.0); MCH 28.8 pg (26.0-34.0); MCHC 33.3 g/dL (28.0-37.0); MCV 86.5 fL (80.0-100.0); RBC 3.05 mil/uL (4.20-5.00); RDW 15.8 % (10.5-14.5); WBC 12.5 thou/uL (4.0-11.0)
[2019-10-22 05:58] LABS: HEMOGLOBIN 8.8 gm/dL (12.0-15.0)
[2019-10-22 06:13] LABS: ALBUMIN 2.7 g/dL (3.4-5.0); CALCIUM 8.4 mg/dL (8.5-10.1); CREATININE 0.7 mg/dL (0.6-1.0); POTASSIUM 3.3 mmol/L (3.5-5.1); TOTAL BILIRUBIN 0.7 mg/dL (<0.1-1.0); TOTAL PROTEIN 6.6 g/dL (6.4-8.2)
[2019-10-22 07:49] VITALS: BP 147/51
[2019-10-22 15:58] VITALS: BP 170/83
[2019-10-22 19:10] VITALS: BP 125/58
[2019-10-23 04:00] VITALS: BP 175/58
[2019-10-23 04:39] VITALS: BP 145/47
[2019-10-23 07:18] LABS: ABSOLUTE NEUTROPHILS 9.2 thou/uL (1.4-8.2); BASOPHILS 0.3 % (0.0-2.0); EOSINOPHILS 1.5 % (0.0-3.0); HEMATOCRIT 24.3 % (37.0-47.0); HEMOGLOBIN 8.1 gm/dL (12.0-15.0); LYMPHOCYTES 9.3 % (24.0-44.0); MCH 28.8 pg (26.0-34.0); MCHC 33.5 g/dL (28.0-37.0); MONOCYTES 7.7 % (1.0-8.0); PLATELET COUNT 178 thou/uL (150-400); POLYS 81.2 % (36.0-66.0); RBC 2.82 mil/uL (4.20-5.00); RDW 15.5 % (10.5-14.5); WBC 11.4 thou/uL (4.0-11.0)
[2019-10-23 07:36] LABS: CALCIUM 8.5 mg/dL (8.5-10.1); CREATININE 0.7 mg/dL (0.6-1.0); POTASSIUM 3.6 mmol/L (3.5-5.1)
[2019-10-23 08:09] VITALS: BP 145/47
[2019-10-23 12:39] VITALS: BP 145/47
[2019-10-23] MEDS ORDERED: LEVOFLOXACIN250 MG PO (17:11)
[2019-10-23] MEDS ORDERED: TIZANIDINE4 MG/1 TA1 PO (17:19)
[2019-10-23] MEDS ORDERED: IPRAT-ALBUT 0.5-3 ML INH (17:19)
[2019-10-23] MEDS ORDERED: FENTANYL1 EAC1 TRANSDERM (18:03)
[2019-10-23] MEDS ORDERED: OXYCODONE HCL 55 MG PO (18:03)
[2019-10-23] MEDS ORDERED: SIMETHICON CHEW80 M1 PO (18:03)
[2019-10-23] MEDS ORDERED: MAG-AL PLUS SUS30 ML PO (18:03)
[2019-10-23] MEDS ORDERED: SPIRONOLACTONE25 M1 PO (18:03)
[2019-10-23] MEDS ORDERED: MAALOX ADVANCE355 ML PO (18:04)
[2019-10-23] MEDS ORDERED: KLOR-CON 10 ER10 MEQ PO (18:04)
[2019-10-23] MEDS ORDERED: MSL20MG/ML PO (18:04)
[2019-10-23] MEDS ORDERED: CARAFATE 1 GM TA1 G1 PO (18:04)
[2019-10-23] MEDS ORDERED: MELATONIN3 MG PO (18:04)
[2019-10-23] MEDS ORDERED: NYAMYC15 GM TOP (18:04)
[2019-10-23] MEDS ORDERED: OMEPRAZOLE 20 M20 M1 PO (18:04)
[2019-10-23] MEDS ORDERED: FUROSEMIDE 40 M40 MG PO (18:04)
== END 2019-10-23 19:51 | DRG 963 ==
LOC: ER 09:06 → EROBS 11:16 → 4S 12:14
PROVIDERS: Emergency Medicine; Internal Medicine; ADMIT Internal Medicine
DX: S32.591A Other specified fracture of right pubis, initial encounter for closed fracture (principal); S72.001A Fracture of unspecified part of neck of right femur, initial encounter for closed fracture; E43 Unspecified severe protein-calorie malnutrition; S72.141A Displaced intertrochanteric fracture of right femur, initial encounter for closed fracture; E87.1 Hypo-osmolality and hyponatremia; N39.0 Urinary tract infection, site not specified; J98.11 Atelectasis; Z68.41 Body mass index [BMI] 40.0-44.9, adult; I13.0 Hypertensive heart and chronic kidney disease with heart failure and stage 1 through stage 4 chronic kidney disease, or unspecified chronic kidney disease; S32.9XXA Fracture of unspecified parts of lumbosacral spine and pelvis, initial encounter for closed fracture; F03.90 Unspecified dementia, unspecified severity, without behavioral disturbance, psychotic disturbance, mood disturbance, and anxiety; K59.00 Constipation, unspecified; F41.9 Anxiety disorder, unspecified; K21.9 Gastro-esophageal reflux disease without esophagitis; E78.5 Hyperlipidemia, unspecified; G47.00 Insomnia, unspecified; E66.01 Morbid (severe) obesity due to excess calories; I50.9 Heart failure, unspecified; J44.9 Chronic obstructive pulmonary disease, unspecified; N18.3 Chronic kidney disease, stage 3 (moderate); B96.20 Unspecified Escherichia coli [E. coli] as the cause of diseases classified elsewhere; G62.9 Polyneuropathy, unspecified; E86.0 Dehydration; Z66 Do not resuscitate; D64.9 Anemia, unspecified; Z90.710 Acquired absence of both cervix and uterus; Z87.81 Personal history of (healed) traumatic fracture; I25.2 Old myocardial infarction; Z88.6 Allergy status to analgesic agent; Z88.0 Allergy status to penicillin; Z88.8 Allergy status to other drugs, medicaments and biological substances; W06.XXXA Fall from bed, initial encounter; Y93.89 Activity, other specified; Y92.89 Other specified places as the place of occurrence of the external cause; Y99.8 Other external cause status
CPT/HCPCS: 10195